=== PATIENT | female | born 1940 | race Caucasian/White ===

== ENCOUNTER 2024-09-04 17:31 | Inpatient (IN) ==
[2024-09-04 17:49] VITALS: BMI 34.7
--- NOTE | 2024-09-04 17:50 | DR.URINEF ---
HPI Time Seen Time Seen by Provider: 09/04/24 17:49 PCP Primary Care Physician: kayce hugo HPI Comment HPI Comment: 83-year-old female non-smoker with history of hypertension, A-fib on Eliquis, was brought in from her home by EMS due to frequent urination and discomfort. She has been treated for UTI recently with 2 rounds of antibiotics, last one was ciprofloxacin 5 days ago. She denied any fever or chills but still has bladder discomfort, feels she still has a UTI Complaint Chief Complaint:: Patient states last wednesday she started having stinging and a foul smell when she urinates and she states she has " I felt loopy more than normal". Patient was recently on cipro 10 day supply on 08/21/24. COVID-19 Coronavirus risk:travel/contact w/high risk person: No Has patient experienced Coronavirus symptoms: No Source History Provided: Patient Mode of Arrival Mode of Arrival: EMS Timing Onset of Chief Complaint: 08/30/24 PMH PMH Past Medical History: Yes Past Medical History: GERD and Hypertension Past Medical History Comment: pacemaker Past Surgical History: Yes Surgical History: Hysterectomy and Ortho Surgery Past Surgical History Comment: right shoulder, pacemaker Family History History of Family Medical Conditions: Yes Family Medical History: Hypertension Social History Does patient currently use any type of tobacco product: No Have you used tobacco products in the last 12 months: No Does any household member use tobacco: No Alcohol Use: None Do you use any recreational Drugs:: No Lives With: Family Lives Where: Home Travel Risk Coronavirus risk:travel/contact w/high risk person: No Has patient experienced Coronavirus symptoms: No Infectious screening In the last 2 months have you had wt loss of >10#?: NO Have you had fever, night sweats or hemotysis?: No Have you traveled outside the country in the last 6 months?: No Isolation: Standard ROS Review of Systems Constitutional: Malaise, Fatigue and Loss of Appetite; negative Diaphoresis, Fever or Weakness Eyes: No Symptoms Reported ENTM: No Symptoms Reported Respiratoy: No Symptoms Reported Cardiovascular: No Symptoms Reported and Palpitations; negative Chest Pain, Edema or Syncope Gastrointestinal/Abdominal: No Symptoms Reported, Abdominal Pain and Nausea; negative Constipation, Diarrhea or Vomiting Genitourinary: Dysuria and Frequency; negative Hematuria Neurological: Anxiety and Depressed Musculoskeletal: Back Pain and Joint Pain Integumentary: No Symptoms Reported; negative Change in Hair/Nails, Dryness or Rash Endocrine: Increased Urine and Decreased Appetite Psychiatric: Anxiety and Depression All Other Systems: Reviewed and Negative PE Vital Signs Vitals: Vital Signs Temperature 97.5 F Pulse Rate 102 Pulse Rate 69 Pulse Rate 60 Pulse Rate 194 Pulse Rate 189 Pulse Rate 197 Pulse Rate 195 Pulse Rate 144 Pulse Rate 116 Pulse Rate 60 Pulse Rate 60 Pulse Rate 60 Respiratory Rate 21 Respiratory Rate 23 Respiratory Rate 23 Respiratory Rate 34 Respiratory Rate 30 Respiratory Rate 36 Respiratory Rate 39 Respiratory Rate 39 Respiratory Rate 21 Respiratory Rate 15 Respiratory Rate 15 Blood Pressure 125/57 Blood Pressure 125/57 Blood Pressure 125/57 Blood Pressure 127/53 Blood Pressure 127/53 Blood Pressure 120/81 Blood Pressure 133/78 Blood Pressure 133/78 Blood Pressure 134/61 Blood Pressure 115/53 O2 Sat by Pulse Oximetry 98 O2 Sat by Pulse Oximetry 98 O2 Sat by Pulse Oximetry 96 O2 Sat by Pulse Oximetry 100 O2 Sat by Pulse Oximetry 95 O2 Sat by Pulse Oximetry 98 O2 Sat by Pulse Oximetry 99 O2 Sat by Pulse Oximetry 98 O2 Sat by Pulse Oximetry 98 O2 Sat by Pulse Oximetry 97 O2 Sat by Pulse Oximetry 98 O2 Sat by Pulse Oximetry 100 General Limitations: No Limitations General Appearance: Alert, In No Apparent Distress and Anxious; negative Lethargic Head Head Exam: Normal Inspection; negative Atraumatic or Normocephalic Eyes Eye exam: Normal Appearance, PERRL and EOMI; negative Conjunctival Injection or Nystagmus ENT ENT Exam: Normal Exam, Normal Oropharynx and Mucous Membranes Moist Neck Neck Exam: Normal Inspection and Full ROM; negative Trachea Midline or Tenderness Chest Chest Inspection: Normal Inspection and Symmetric Chest Wall Rise; negative Tenderness or Rash Respiratory Respiratory Exam: Normal Lung Sounds Bilat; negative Accessory Muscle Use or Chest Wall Tenderness Cardiovascular Cardiovascular Exam: Regular Rate and Normal Rhythm Abdominal Exam Abdominal Exam: Normal Inspection, Normal Bowel Sounds, Soft and Tenderness; negative Distention, Guarding, Rebound or Rigidity Extremities Extremities Exam: Normal Inspection, Full ROM and Normal Capillary Refill; negative Tenderness, Edema or Joint Swelling Back Back Exam: Normal Inspection and Full ROM; negative Tenderness, (R) CVA Tenderness, (L) CVA Tenderness, Muscle Spasm or Vertebral Tenderness Psychiatric Psychiatric Exam: Normal Affect, Normal Mood and Depressed Skin Skin Exam: Warm, Dry and Intact; negative Rash MDM Additional Information Obtained Additional Information Obtained From: Old Records Differential Diagnosis Differential Diagnosis: Constipation, Pyelonephritis, Urinary retention, Urolithiasis and UTI COURSE Treatment Treatment: Patient is given IV fluids, with potassium chloride supplementation since her serum potassium is 2.3. Regarding her hypercalcemia with a level of 15, she was given IV hydration using saline, calcitonin 4 units/kg at 360 units subcu. PTH and 125 dihydroxy vitamin D levels were also ordered. Patient will be admitted for the hospitalist, discussed with Dr. Baez Reevaluation 1st: Unchanged Consultation Called: 19:55 Call Returned: 20:00 Consultation Comments: Dr. Baez: Will admit for the floor Education/Counseling Education/Counseling: Patient and Counseling Educated On: Treatment, Diagnosis and Prognosis ROR Labs Reviewed Laboratory Results Reviewed?: Yes 09/04/24 18:06 09/04/24 18:06 Laboratory: WBC 6.7 X10^3/uL (3.6-10.0) 09/04/24 18:06 RBC 3.53 X10^6/uL (3.5-5.4) 09/04/24 18:06 Hgb 11.1 g/dL (12.0-16.0) L 09/04/24 18:06 Hct 32.5 % (36.0-47.0) L 09/04/24 18:06 MCV 92.0 fL (80.0-100.0) 09/04/24 18:06 MCH 31.4 pg (27.0-34.0) 09/04/24 18:06 MCHC 34.1 g/dL (33.0-35.0) 09/04/24 18:06 RDW 14.7 % (11.6-16.5) 09/04/24 18:06 Plt Count 239 X10^3/uL (150.0-450.0) 09/04/24 18:06 MPV 8.3 fL (7.4-11.0) 09/04/24 18:06 Neut % (Auto) 59.2 % (42.0-75.0) 09/04/24 18:06 Lymph % (Auto) 25.9 % (21.0-51.0) 09/04/24 18:06 [place] % (Auto) 6.1 % (0.0-13.0) 09/04/24 18:06 Eos % (Auto) 6.0 % (0.9-2.9) H 09/04/24 18:06 Baso % (Auto) 2.8 % (0.2-1.0) H 09/04/24 18:06 Neut # (Auto) 4.0 x10^3/uL (2.2-4.8) 09/04/24 18:06 Lymph # (Auto) 1.7 X10^3/uL (1.3-2.9) 09/04/24 18:06 [place] # (Auto) 0.4 x10^3/uL (0.3-0.8) 09/04/24 18:06 Eos # (Auto) 0.4 x10^3/uL (0.0-0.2) H 09/04/24 18:06 Baso # (Auto) 0.2 X10^3/uL (0.0-0.1) H 09/04/24 18:06 Absolute Nucleated RBC 0.2 /100WBC 09/04/24 18:06 Sodium 138 mmol/L (136-145) 09/04/24 18:06 Corrected Sodium 138 mmol/L (136-145) 09/04/24 18:06 Potassium 2.3 mmol/L (3.5-5.1) L* 09/04/24 18:06 Chloride 96 mmol/L (98-107) L 09/04/24 18:06 Carbon Dioxide 33.6 mmol/L (21-32) H 09/04/24 18:06 BUN 18 mg/dL (7-18) 09/04/24 18:06 Creatinine 1.22 mg/dL (0.55-1.02) H 09/04/24 18:06 Est GFR (MDRD) Af Amer 54 (>60) L 09/04/24 18:06 Est GFR (MDRD) Non-Af 45 (>60) L 09/04/24 18:06 Glucose 111 mg/dL (65-99) H 09/04/24 18:06 Calcium 15.6 mg/dL (8.5-10.1) H* 09/04/24 18:06 Corrected Calcium TNP 09/04/24 18:06 Total Bilirubin 0.70 mg/dL (0.2-1.0) 09/04/24 18:06 AST 29 Units/L (15-37) 09/04/24 18:06 ALT 25 Units/L (12-78) 09/04/24 18:06 Alkaline Phosphatase 113 Units/L (46-116) 09/04/24 18:06 Creatine Kinase 30 Units/L (26-192) 09/04/24 18:06 Troponin I High Sens 42.6 ng/L (4.0-60.0) 09/04/24 18:06 Total Protein 9.2 g/dL (6.4-8.2) H 09/04/24 18:06 Albumin 3.5 g/dL (3.4-5.0) 09/04/24 18:06 Globulin 5.7 g/dL (2.5-4.5) H 09/04/24 18:06 Albumin/Globulin Ratio 0.6 Ratio (1.1-2.1) L 09/04/24 18:06 Specimen Type Clean catch urine 09/04/24 17:50 Urine Color Pale yellow (YELLOW) 09/04/24 17:50 Urine Appearance Clear (CLEAR) 09/04/24 17:50 Urine pH 6.0 (5.0 - 8.0) 09/04/24 17:50 Ur Specific [place] 1.020 (1.000-1.030) 09/04/24 17:50 Urine Protein 1+ (NEGATIVE) 09/04/24 17:50 Urine Glucose (UA) Negative (NEGATIVE) 09/04/24 17:50 Urine Ketones Negative (NEGATIVE) 09/04/24 17:50 Urine Blood 4+ (NEGATIVE) 09/04/24 17:50 Urine Nitrite Negative (NEGATIVE) 09/04/24 17:50 Urine Bilirubin Negative (NEGATIVE) 09/04/24 17:50 Urine Urobilinogen Normal (NORMAL) 09/04/24 17:50 Ur Leukocyte Esterase 1+ (NEGATIVE) 09/04/24 17:50 Urine RBC 5-10 /HPF (0-3) A 09/04/24 17:50 Urine WBC 0-2 /HPF (0-5) 09/04/24 17:50 Ur Squamous Epith Cells Moderate /HPF (NEGATIVE) 09/04/24 17:50 Urine Bacteria Trace /HPF (NEGATIVE) 09/04/24 17:50 Ur Culture Indicated? No/not indicated 09/04/24 17:50 XRAY X-ray Results: CT of A/P: No signs of bowel obstruction or ureteral obstruction; heavy fecal burden in colon Opioid Opioid Risk Tool Age (Lasha box if 16-45): No History of Preadolescent Sexual Abuse: No Total: 0 Total Score Risk Category: Low Risk Copyright: [facility] predicting aberrant behaviors Discharge Plan Diagnosis Discharge Problem: Hypercalcemia, Acute hypokalemia Constipation Qualifiers: Constipation type: slow transit constipation Qualified Code(s): K59.01 - Slow transit constipation Hospital Course Hospital Course: She was seen normal saline, potassium supplementation both IV and orally. Calcitonin was also given subcu for elevated serum calcium patient will be admitted for the hospitalist, Dr. Baez Discharge Plan Patient Disposition: HOME, SELF-CARE Assessment: HyperCalcemia: IV hydration, calcitonin, further workup including PTH and vitamin D levels Hypokalemia: IV and oral supplementation Condition: Stable Prescription drug monitoring program results: PDMP reviewed and no concerns identified Prescriptions: No Action Eliquis 5 mg tablet 5 mg PO BID 90 Days Qty: 180 1RF pantoprazole 40 mg tablet,delayed release (DR/EC) 40 mg PO QDAY 90 Days Qty: 90 1RF donepezil 5 mg tablet 5 mg PO QDAY 30 Days Qty: 30 3RF hydrochlorothiazide 12.5 mg tablet 12.5 mg PO QDAY 90 Days Qty: 90 1RF amlodipine 10 mg tablet 10 mg PO QDAY 90 Days Qty: 90 1RF metoprolol tartrate 25 mg tablet 25 mg PO BID cetirizine 10 mg tablet 10 mg PO QDAY 30 Days Qty: 30 5RF Health Concerns: Post Hospitalization: new medications and changes needed to prevent readmission or further decline. Pt educated and given instructions on all concerns. Plan of Treatment: Continue with present treatment and follow up plan. Pt is to keep follow up appointment as instructed and take medications as ordered. Orders to Discharge Patient Discharge Orders: Discharge (Routine); Ordered 09/04/24 Ordered By: Madhav Barbosa Transfer (Routine); Ordered 09/04/24 Ordered By: Madhav Barbosa Follow ups/Referrals Follow ups/Referrals: NFD,None [Primary Care Provider] - 3 days Instructions Stand Alone Forms: Find Help Web Site, Post Hospital Follow Up Care Print Language: JORDANIAN
[2024-09-04 18:21] LABS: MEAN PLATELET VOLUME 8.3 fL (7.4-11.0); RED CELL DISTRIBUTION WIDTH 14.7 % (11.6-16.5)
[2024-09-04 18:23] LABS: BLOOD/HEMOGLOBIN,URINE 4+ (NEGATIVE); LEUKOCYTE ESTERASE ,URINE 1+ (NEGATIVE); NITRITES,URINE NEGATIVE (NEGATIVE)
[2024-09-04 18:30] LABS: COR NA(FOR HYPERGLY) 138 mmol/L (136-145); CREATININE 1.22 mg/dL (0.55-1.02); eGFR NON BLACK RACES 45 (>60)
[2024-09-04 18:38] LABS: APPEARANCE,URINE CLEAR (CLEAR); SQUAMOUS EPITHELIAL CELL,UR MODERATE /HPF (NEGATIVE)
[2024-09-04] MEDS: POTASSIUM CHLORIDE LIQ PO ONE (18:49)
[2024-09-04] MEDS: NS + KCL 40 MEQ/L 1,000 ML IV ONE (18:49)
--- NOTE | 2024-09-04 19:00 | CT ---
CT ABDOMEN AND PELVIS WITHOUT CONTRAST HISTORY: Foul-smelling urine COMPARISON: None TECHNIQUE: Axial images were obtained of the abdomen and pelvis without IV contrast. Sagittal and coronal reformatted images were provided. All images were reviewed in a variety of windows and levels. RADIATION REDUCTION TECHNIQUE: Automated exposure control, adjustment of the mA or kV according to patient size, or iterative reconstruction techniques were used. FINDINGS: Please note that lack of IV contrast does limit evaluation of the soft tissues and vascular detail. The visualized lower lung zones are clear. The heart size is within normal limits. There is no evidence of a pericardial effusion. Implantable cardiac device is noted. The liver, spleen, pancreas, adrenal glands, and kidneys are grossly unremarkable. Gallstones are suggested. Status post hysterectomy. Moderate to severe constipation is seen with heavy fecal burden from the cecum to the rectosigmoid region. The appendix is not visualized on this examination. There is no evidence of stones or signs of obstructive uropathy. The stomach, small bowel, and colon are grossly unremarkable. A few scattered diverticula are seen without evidence of diverticulitis. There are no inflammatory changes in the right lower quadrant to suggest secondary signs of acute appendicitis. There is no evidence of retroperitoneal or mesenteric lymphadenopathy. The visualized bones demonstrate degenerative changes. There are no concerning lytic or blastic lesions identified. Right hip arthroplasty is noted. IMPRESSION: 1. Implantable cardiac device is noted. 2. Gallstones are suggested. 3. Status post hysterectomy. 4. Moderate to severe constipation is seen with heavy fecal burden from the cecum to the rectosigmoid region. 5. Right hip arthroplasty is noted. THIS IS AN ELECTRONICALLY VERIFIED FINAL REPORT 09/04/2024 6:58 PM - Electronically signed by Vamsi Lugo MD
--- NOTE | 2024-09-04 19:37 | EKG ---
Test Reason : Afib, HyperCalcemia, hypokalemia Blood Pressure : */* mmHG Vent. Rate : 61 BPM Atrial Rate : 61 BPM P-R Int : 254 ms QRS Dur : 100 ms QT Int : 372 ms P-R-T Axes : * -13 10 degrees QTc Int : 374 ms Atrial-paced rhythm with prolonged AV conduction Incomplete right bundle branch block Minimal voltage criteria for LVH, may be normal variant ( R in aVL ) Septal infarct , age undetermined Nonspecific T wave abnormality Baseline wander Abnormal ECG No previous ECGs available Confirmed by Elliott Conteh MD ([id number]) on 09/05/2024 7:12:27 AM Referred By: Confirmed By: Elliott Conteh MD
[2024-09-04 20:53] LABS: COR NA(FOR HYPERGLY) 139 mmol/L (136-145); CREATININE 1.05 mg/dL (0.55-1.02); eGFR NON BLACK RACES 53 (>60)
[2024-09-04 20:57] LABS: COR CA(FOR HYPOALB) 15.5 mg/dL (8.5-10.1)
[2024-09-04] MEDS: MIACALCIN INJ SC ONE (21:05)
[2024-09-04] MEDS: MAG-OX TAB PO ONE (21:06)
[2024-09-04] MEDS: NORVASC TAB 10 MG PO SCH (23:18)
[2024-09-04] MEDS: ELIQUIS PO SCH (23:18)
[2024-09-04] MEDS: PROTONIX TAB 40 MG PO SCH (23:18)
[2024-09-04] MEDS: LOPRESSOR TAB 25 MG PO SCH (23:18)
[2024-09-04] MEDS: ARICEPT TAB 5 MG PO SCH (23:18)
[2024-09-05] MEDS: ZOFRAN INJ 4 MG VIAL IVP PRN (01:56)
[2024-09-05 05:52] LABS: MEAN PLATELET VOLUME 8.6 fL (7.4-11.0); RED CELL DISTRIBUTION WIDTH 15.1 % (11.6-16.5)
[2024-09-05 06:04] LABS: COR CA(FOR HYPOALB) 13.8 mg/dL (8.5-10.1); COR NA(FOR HYPERGLY) 143 mmol/L (136-145); CREATININE 1.07 mg/dL (0.55-1.02); eGFR NON BLACK RACES 52 (>60)
[2024-09-05] MEDS ORDERED: CONSULT PHARMACY - POTASSIUM & MAGNESIUM XX SCH (07:00)
--- NOTE | 2024-09-05 08:02 | RAD ---
EXAMINATION: CHEST, 1 VIEW HISTORY: having stinging and a foul smell when she urinates and she states she has " I felt loopy more than normal". Patient was recently on cipro 10 day supply on 08/21/24.; . COMPARISON STUDY: None. TECHNIQUE: A single view of the chest was obtained. FINDINGS: Left-sided dual lead pacemaker in place. Poor inspiration. Heart size is mildly enlarged. No acute infiltrates. There is no pneumothorax. Hilar and mediastinal structures and bony structures are unremarkable. Central vascular congestion. EKG leads overlie the chest.. IMPRESSION: Central vascular congestion. No acute infiltrates THIS IS AN ELECTRONICALLY VERIFIED FINAL REPORT 09/05/2024 7:59 AM - Electronically signed by López Kirkland MD
[2024-09-05] MEDS: MAG-OX TAB PO SCH (08:35)
[2024-09-05] MEDS: HYDROCHLOROTHIAZIDE 12.5 MG CAP PO SCH (08:35)
[2024-09-05] MEDS: K-DUR TAB 20 MEQ PO SCH (08:36)
[2024-09-05] MEDS ORDERED: COLACE CAP 100 MG PO PRN (09:48)
--- NOTE | 2024-09-05 09:54 | DR.H&P ---
H&P History & Physical for Day of: H&P Date: 09/05/24 Chief Complaint Chief Complaint: urinary symptoms History of Present Illness History of Present Illness: Ms Guerra is a 83-year-old female with a past medical history of atrial fibrillation, type 2 diabetes, hypertension, COPD and GERD presented with worsening urinary symptoms. She was being treated for UTI outpatient with ciprofloxacin. ER workup included labs which showed elevated calcium 15.6, potassium 2.3 Immuzim 1.6. UA was not suggestive of infection. Chest x-ray showed vascular congestion. CT abdomen pelvis showed gallstones and constipation. She was given calcitonin and electrolyte correction. She was admitted for further management. She is feeling better this morning. She states her last bowel movement was yesterday. She reports poor oral intake for the past few days. She also had some nausea and vomiting. Labs/imaging reviewed: - WBC 6.1 hemoglobin 10.1 potassium 2.9 magnesium 1.5 creatinine 1.07 - Corrected calcium 13.8 - CTAP and chest x-ray reviewed Plan: Admit to [facility], replace potassium and magnesium. Start gentle hydration with normal saline and electrolytes. Give another dose of calcitonin. Follow-up pending labs. Hold HCTZ due to hypercalcemia. Monitor calcium level. Zofran as needed. Resume home medications. Add Colace as needed. Physical therapy as tolerated. Monitor a.m. labs and imaging. Time spent for clinical assessment, reviewing labs and imaging, physical exam, decision making and documentation greater than 45 minutes. Past Medical History Past Medical History: GERD and Hypertension Past Surgical History Surgical History: Hysterectomy and Ortho Surgery Family History Family Medical History: Diabetes Mellitus, Cancer and Hypertension Social History Does patient currently use any type of tobacco product: No Have you used tobacco products in the last 12 months: No Type of Tobacco Use: None Does any household member use tobacco: No Alcohol Use: None Drug Use: None Medications Home Medications: Home Medications Medication Instructions Recorded Confirmed Type metoprolol tartrate 25 mg tablet 25 mg PO BID 04/16/23 09/04/24 History Allergies Allergies Allergy/AdvReac Type Severity Reaction Status Date / Time Penicillins Allergy Verified 08/09/24 14:19 Labs 09/05/24 05:15 09/05/24 05:15 Labs: Laboratory WBC 6.1 X10^3/uL (3.6-10.0) 09/05/24 05:15 RBC 3.17 X10^6/uL (3.5-5.4) L 09/05/24 05:15 Hgb 10.1 g/dL (12.0-16.0) L 09/05/24 05:15 Hct 28.9 % (36.0-47.0) L 09/05/24 05:15 MCV 91.4 fL (80.0-100.0) 09/05/24 05:15 MCH 31.8 pg (27.0-34.0) 09/05/24 05:15 MCHC 34.8 g/dL (33.0-35.0) 09/05/24 05:15 RDW 15.1 % (11.6-16.5) 09/05/24 05:15 Plt Count 209 X10^3/uL (150.0-450.0) 09/05/24 05:15 MPV 8.6 fL (7.4-11.0) 09/05/24 05:15 Neut % (Auto) 71.6 % (42.0-75.0) 09/05/24 05:15 Lymph % (Auto) 19.0 % (21.0-51.0) L 09/05/24 05:15 [place] % (Auto) 7.0 % (0.0-13.0) 09/05/24 05:15 Eos % (Auto) 2.0 % (0.9-2.9) 09/05/24 05:15 Baso % (Auto) 0.4 % (0.2-1.0) 09/05/24 05:15 Neut # (Auto) 4.4 x10^3/uL (2.2-4.8) 09/05/24 05:15 Lymph # (Auto) 1.2 X10^3/uL (1.3-2.9) L 09/05/24 05:15 [place] # (Auto) 0.4 x10^3/uL (0.3-0.8) 09/05/24 05:15 Eos # (Auto) 0.1 x10^3/uL (0.0-0.2) 09/05/24 05:15 Baso # (Auto) 0.0 X10^3/uL (0.0-0.1) 09/05/24 05:15 Absolute Nucleated RBC 0.0 /100WBC 09/05/24 05:15 Sodium 142 mmol/L (136-145) 09/05/24 05:15 Corrected Sodium 143 mmol/L (136-145) 09/05/24 05:15 Potassium 2.9 mmol/L (3.5-5.1) L* 09/05/24 05:15 Chloride 102 mmol/L (98-107) 09/05/24 05:15 Carbon Dioxide 32.8 mmol/L (21-32) H 09/05/24 05:15 BUN 15 mg/dL (7-18) 09/05/24 05:15 Creatinine 1.07 mg/dL (0.55-1.02) H 09/05/24 05:15 Est GFR (MDRD) Af Amer > 60 (>60) 09/05/24 05:15 Est GFR (MDRD) Non-Af 52 (>60) L 09/05/24 05:15 Glucose 142 mg/dL (65-99) H 09/05/24 05:15 Calcium 13.1 mg/dL (8.5-10.1) H* 09/05/24 05:15 Corrected Calcium 13.8 mg/dL (8.5-10.1) H 09/05/24 05:15 Magnesium 1.5 mg/dL (2.0-2.9) L 09/05/24 05:15 Total Bilirubin 0.60 mg/dL (0.2-1.0) 09/05/24 05:15 AST 26 Units/L (15-37) 09/05/24 05:15 ALT 24 Units/L (12-78) 09/05/24 05:15 Alkaline Phosphatase 101 Units/L (46-116) 09/05/24 05:15 Creatine Kinase 30 Units/L (26-192) 09/04/24 18:06 Troponin I High Sens 42.6 ng/L (4.0-60.0) 09/04/24 18:06 Total Protein 8.1 g/dL (6.4-8.2) 09/05/24 05:15 Albumin 3.1 g/dL (3.4-5.0) L 09/05/24 05:15 Globulin 5.0 g/dL (2.5-4.5) H 09/05/24 05:15 Albumin/Globulin Ratio 0.6 Ratio (1.1-2.1) L 09/05/24 05:15 Specimen Type Clean catch urine 09/04/24 17:50 Urine Color Pale yellow (YELLOW) 09/04/24 17:50 Urine Appearance Clear (CLEAR) 09/04/24 17:50 Urine pH 6.0 (5.0 - 8.0) 09/04/24 17:50 Ur Specific [place] 1.020 (1.000-1.030) 09/04/24 17:50 Urine Protein 1+ (NEGATIVE) 09/04/24 17:50 Urine Glucose (UA) Negative (NEGATIVE) 09/04/24 17:50 Urine Ketones Negative (NEGATIVE) 09/04/24 17:50 Urine Blood 4+ (NEGATIVE) 09/04/24 17:50 Urine Nitrite Negative (NEGATIVE) 09/04/24 17:50 Urine Bilirubin Negative (NEGATIVE) 09/04/24 17:50 Urine Urobilinogen Normal (NORMAL) 09/04/24 17:50 Ur Leukocyte Esterase 1+ (NEGATIVE) 09/04/24 17:50 Urine RBC 5-10 /HPF (0-3) A 09/04/24 17:50 Urine WBC 0-2 /HPF (0-5) 09/04/24 17:50 Ur Squamous Epith Cells Moderate /HPF (NEGATIVE) 09/04/24 17:50 Urine Bacteria Trace /HPF (NEGATIVE) 09/04/24 17:50 Ur Culture Indicated? No/not indicated 09/04/24 17:50 Review of Systems Constitutional: Weakness Eyes: No Symptoms Reported ENT: No Symptoms Reported Respiratory: No Symptoms Reported Cardiovascular: No Symptoms Reported Gastrointestinal: Nausea, Vomiting and Constipation Genitourinary: Dysuria and Frequency Musculoskeletal: No Symptoms Reported Skin: No Symptoms Reported Neurological: No Symptoms Reported Physical Exam Vital Signs: Vital Signs Temperature 97.7 F Temperature 98.5 F Pulse Rate [Apical] 60 Pulse Rate [Apical] 61 Respiratory Rate 20 Respiratory Rate 18 Blood Pressure [Left Arm] 133/61 Blood Pressure [Left Arm] 120/58 O2 Sat by Pulse Oximetry 95 O2 Sat by Pulse Oximetry 93 Oriented: Normal Respiratory: Diminished Throughout Cardiovascular: Normal Auscultation: Bowel Sounds: Normal Palpation: Normal Tenderness: Normal Skin: Normal Musculoskeletal: Normal Psychiatric: Normal Mood Description: Calm Affect: Normal Speech Pattern: Clear and Appropriate Assessment/Plan (1) Hypercalcemia: Status: Acute (2) Acute hypokalemia: Status: Acute (3) Constipation: Qualifiers: Constipation type: slow transit constipation Qualified Code(s): K59.01 - Slow transit constipation Status: Acute (4) Hypomagnesemia: Status: Acute (5) COPD (chronic obstructive pulmonary disease): Qualifiers: COPD type: unspecified COPD Qualified Code(s): J44.9 - Chronic obstructive pulmonary disease, unspecified Status: Chronic (6) Type 2 diabetes, diet controlled: Status: Chronic (7) Afib: Qualifiers: Atrial fibrillation type: unspecified chronic Qualified Code(s): I48.20 - Chronic atrial fibrillation, unspecified Status: Chronic Review H&P Reviewed: Yes Patient was examined?: Yes
[2024-09-05] MEDS: NS + KCL 20 MEQ/L 1,000 ML with MAGNESIUM SULFATE 50% INJ VIAL 1 G IV SCH (10:50)
[2024-09-05] MEDS: DULCOLAX SUPPOSITORY 10 MG RECTAL ONE (10:50)
[2024-09-05] MEDS: MIACALCIN INJ SC NR (10:51)
[2024-09-06 05:57] LABS: MEAN PLATELET VOLUME 8.9 fL (7.4-11.0); RED CELL DISTRIBUTION WIDTH 14.8 % (11.6-16.5)
[2024-09-06 06:13] LABS: COR CA(FOR HYPOALB) 13.5 mg/dL (8.5-10.1); COR NA(FOR HYPERGLY) 143 mmol/L (136-145); CREATININE 0.95 mg/dL (0.55-1.02); eGFR NON BLACK RACES > 60 (>60)
--- NOTE | 2024-09-06 06:45 | US ---
EXAMINATION: GALL BLADDER HISTORY: gallstones on CT, N/V; . COMPARISON STUDY: None. TECHNIQUE: Real-time grayscale, color flow, duplex Doppler spectral analysis ultrasound of the right upper abdominal quadrant FINDINGS: The gallbladder is mildly distended and contains multiple gallstones. Gallbladder monge measure 2 mm diameter. Common bile duct measures 3 mm diameter. No intrahepatic bile duct dilatation. The liver measures 18 cm longitudinal oblique dimension and is heterogeneous hyperechoic. Consider fatty infiltration. Liver details are limited. Normal venous waveforms within the main portal vein. Normal arterial waveforms main hepatic artery. Tail of pancreas obscured by patient body habitus. No obvious pancreatic duct dilatation. IMPRESSION: Cholelithiasis. Hepatomegaly. The liver is diffuse heterogeneous hyperechoic. THIS IS AN ELECTRONICALLY VERIFIED FINAL REPORT 09/06/2024 6:42 AM - Electronically signed by Melodie Hoffman MD
[2024-09-06] MEDS ORDERED: CONSULT PHARMACY - POTASSIUM & MAGNESIUM XX SCH (07:00)
[2024-09-06] MEDS ORDERED: K-DUR TAB 20 MEQ PO SCH (09:00)
[2024-09-06] MEDS ORDERED: MAG-OX TAB PO SCH (09:00)
[2024-09-06] MEDS ORDERED: PHARMACY CONSULT XX SCH (15:00)
[2024-09-06] MEDS: NS 500 ML IV 500 ML with AREDIA 90 MG IV ONE (15:32)
[2024-09-06] MEDS: MIRALAX POWDER (1 DOSE 17 G) PO SCH (15:35)
--- NOTE | 2024-09-06 17:18 | NOTE.SOAP ---
Soap Note Note for Day of Date of Exam: 09/06/24 Subjective Data Subjective Data: Still with elevated calcium. Still with constipation. Labs otherwise stable with improving hypokalemia. Vital stable. Seen with nurse at bedside. Objective Data Objective Data: Elderly female in no acute distress. Mild confusion but pleasant and answers most questions appropriately. Heart regular rate and rhythm with clear lungs. Bowel sounds present and nontender. Slightly distended. Assessment Assessment: Hypercalcemia Hypokalemia Chronic constipation Recent right hip fracture status post ORIF Plan Plan: Start bisphosphonate. Continue IV fluids. Monitor labs closely. Potassium as needed. Bowel cleanse. Remove alexandra.
[2024-09-06] MEDS: ARICEPT TAB 5 MG PO SCH (22:05)
[2024-09-07 05:55] LABS: MEAN PLATELET VOLUME 8.7 fL (7.4-11.0); RED CELL DISTRIBUTION WIDTH 14.7 % (11.6-16.5)
[2024-09-07 06:09] LABS: COR CA(FOR HYPOALB) 13.6 mg/dL (8.5-10.1); CREATININE 0.82 mg/dL (0.55-1.02); eGFR NON BLACK RACES > 60 (>60)
--- NOTE | 2024-09-07 07:47 | CT ---
EXAMINATION: CHEST W/O CON HISTORY: poss tumor in chest ; . COMPARISON: Chest x-ray 09/05/2024 TECHNIQUE: Routine axial imaging of the chest was performed. Lack of IV contrast limits sensitivity.. The above CT scan was done with automated exposure control and the mA and kV was adjusted to obtain quality images according to patient size. FINDINGS: Lungs: Respiratory motion. Scattered patchy areas of atelectasis. Minimal central bronchiectasis. No acute infiltrates, suspicious pulmonary nodules, interstitial changes or ground-glass opacities Central Airways: No obstructing endobronchial lesions Pleura: No pleural effusion or pneumothorax Thoracic Aorta: Ectasia. Atherosclerotic calcification Main Pulmonary Trunk: Normal diameter Lymph Nodes: No pathologic hilar, axillary or mediastinal adenopathy Heart/Pericardium: Mild cardiomegaly. No significant pericardial effusion. Pacemaker. Coronary artery calcification Liver: No acute findings. GB/Biliary: Not visualized Spleen: Normal size and density Pancreas: No acute findings as visualized Adrenal Glands: No mass Kidneys limited visualization. Abdominal Aorta: Tapers normally Retroperitoneum: No pathologically enlarged lymph nodes Bowel/Peritoneal Cavity: No acute findings as visualized Osseous Structures: Degenerative changes in the spine. Other: None IMPRESSION: No acute findings in the chest. No suspicious pulmonary nodule Scattered patchy areas of atelectasis with central bronchiectasis The above CT scan was done with automated exposure control and the mA and kV was adjusted to obtain quality images according to patient size THIS IS AN ELECTRONICALLY VERIFIED FINAL REPORT 09/07/2024 7:35 AM - Electronically signed by López Kirkland MD
[2024-09-07] MEDS ORDERED: CONSULT PHARMACY - POTASSIUM & MAGNESIUM XX SCH (08:00)
[2024-09-07] MEDS: NS 500 ML IV 500 ML with AREDIA 90 MG IV ONE (09:28)
[2024-09-07] MEDS: NS + KCL 40 MEQ/L 1,000 ML with MAGNESIUM SULFATE 50% INJ VIAL 1 G IV SCH (09:51)
--- NOTE | 2024-09-07 11:02 | NOTE.SOAP ---
Soap Note Note for Day of Date of Exam: 09/07/24 Subjective Data Subjective Data: Calcium down to 12.6 from 12.8. Potassium down to 3.0 from 3.5. No bowel movement yesterday or this morning. Vitals overall stable. Patient sitting at the edge of the bed eating breakfast. Objective Data Objective Data: Elderly female in no acute distress. Heart regular rate and rhythm. Lungs are clear. Belly is soft and nontender with bowel sounds present. Some mild distention. Hearing intact conversation. Assessment Assessment: Acute hypercalcemia Acute hypokalemia Chronic constipation subacute RT hip fracture s/p ORIF Plan Plan: Continue MiraLAX and Colace. As needed magnesium. Another dose of bisphosphonate today. Continue monitor labs. Highly likely that we will be trying to transfer her to another facility for nephrology evaluation tomorrow. Does need an outpatient endocrine workup. Chest CT not consistent with any metastatic disease. Given the CT of her chest yesterday and CT A/P earlier this week, highly doubt there is an occult malignancy.
[2024-09-08 06:12] LABS: MEAN PLATELET VOLUME 9.0 fL (7.4-11.0); RED CELL DISTRIBUTION WIDTH 14.9 % (11.6-16.5)
[2024-09-08 06:22] LABS: COR CA(FOR HYPOALB) 12.2 mg/dL (8.5-10.1); CREATININE 0.87 mg/dL (0.55-1.02); eGFR NON BLACK RACES > 60 (>60)
[2024-09-08 08:07] VITALS: BP 142/62; PULSE 60; RESP 20; TEMP 97.6; O2SAT 94
--- NOTE | 2024-09-08 10:03 | PCM.DCPLAN ---
DISCHARGE SUMMARY Admission Date Date of Admission: 09/04/24 Discharge Date Discharge Date: 09/08/24 Admission Diagnoses (1) Hypercalcemia: Status: Acute (2) Acute hypokalemia: Status: Acute (3) Constipation: Status: Acute (4) Hypomagnesemia: Status: Acute (5) COPD (chronic obstructive pulmonary disease): Status: Chronic (6) Type 2 diabetes, diet controlled: Status: Chronic (7) Afib: Status: Chronic Discharge Medications Discharge Medications: Prescriptions: Hospital Course Vital Signs: Vital Signs Temperature 98.5 F Temperature 99.0 F Pulse Rate [Apical] 62 Pulse Rate [Apical] 62 Respiratory Rate 19 Respiratory Rate 19 Blood Pressure [Left Arm] 137/61 Blood Pressure [Left Arm] 154/59 O2 Sat by Pulse Oximetry 95 O2 Sat by Pulse Oximetry 94 Latest Lab Results: Laboratory Last Values WBC 3.7 X10^3/uL (3.6-10.0) 09/08/24 05:17 RBC 2.73 X10^6/uL (3.5-5.4) L 09/08/24 05:17 Hgb 8.6 g/dL (12.0-16.0) L 09/08/24 05:17 Hct 25.0 % (36.0-47.0) L 09/08/24 05:17 MCV 91.8 fL (80.0-100.0) 09/08/24 05:17 MCH 31.7 pg (27.0-34.0) 09/08/24 05:17 MCHC 34.6 g/dL (33.0-35.0) 09/08/24 05:17 RDW 14.9 % (11.6-16.5) 09/08/24 05:17 Plt Count 157 X10^3/uL (150.0-450.0) 09/08/24 05:17 MPV 9.0 fL (7.4-11.0) 09/08/24 05:17 Neut % (Auto) 63.3 % (42.0-75.0) 09/08/24 05:17 Lymph % (Auto) 24.1 % (21.0-51.0) 09/08/24 05:17 Clay % (Auto) 7.6 % (0.0-13.0) 09/08/24 05:17 Eos % (Auto) 4.4 % (0.9-2.9) H 09/08/24 05:17 Baso % (Auto) 0.6 % (0.2-1.0) 09/08/24 05:17 Neut # (Auto) 2.3 x10^3/uL (2.2-4.8) 09/08/24 05:17 Lymph # (Auto) 0.9 X10^3/uL (1.3-2.9) L 09/08/24 05:17 Clay # (Auto) 0.3 x10^3/uL (0.3-0.8) 09/08/24 05:17 Eos # (Auto) 0.2 x10^3/uL (0.0-0.2) 09/08/24 05:17 Baso # (Auto) 0.0 X10^3/uL (0.0-0.1) 09/08/24 05:17 Absolute Nucleated RBC 0.2 /100WBC 09/08/24 05:17 Sodium 142 mmol/L (136-145) 09/08/24 05:17 Corrected Sodium TNP 09/08/24 05:17 Potassium 3.2 mmol/L (3.5-5.1) L 09/08/24 05:17 Chloride 108 mmol/L (98-107) H 09/08/24 05:17 Carbon Dioxide 25.9 mmol/L (21-32) 09/08/24 05:17 BUN 11 mg/dL (7-18) 09/08/24 05:17 Creatinine 0.87 mg/dL (0.55-1.02) 09/08/24 05:17 Est GFR (MDRD) Af Amer > 60 (>60) 09/08/24 05:17 Est GFR (MDRD) Non-Af > 60 (>60) 09/08/24 05:17 Glucose 95 mg/dL (65-99) 09/08/24 05:17 Calcium 11.2 mg/dL (8.5-10.1) H 09/08/24 05:17 Corrected Calcium 12.2 mg/dL (8.5-10.1) H 09/08/24 05:17 Magnesium 1.9 mg/dL (2.0-2.9) L 09/07/24 05:25 Total Bilirubin 0.50 mg/dL (0.2-1.0) 09/08/24 05:17 AST 25 Units/L (15-37) 09/08/24 05:17 ALT 19 Units/L (12-78) 09/08/24 05:17 Alkaline Phosphatase 98 Units/L (46-116) 09/08/24 05:17 Creatine Kinase 30 Units/L (26-192) 09/04/24 18:06 Troponin I High Sens 42.6 ng/L (4.0-60.0) 09/04/24 18:06 Total Protein 7.5 g/dL (6.4-8.2) 09/08/24 05:17 Albumin 2.8 g/dL (3.4-5.0) L 09/08/24 05:17 Globulin 4.7 g/dL (2.5-4.5) H 09/08/24 05:17 Albumin/Globulin Ratio 0.6 Ratio (1.1-2.1) L 09/08/24 05:17 Vit D 1,25-Dihydroxy Cancelled 09/04/24 18:06 PTH Intact <6 pg/mL (16-77) L 09/04/24 18:06 Specimen Type Clean catch urine 09/04/24 17:50 Urine Color Pale yellow (YELLOW) 09/04/24 17:50 Urine Appearance Clear (CLEAR) 09/04/24 17:50 Urine pH 6.0 (5.0 - 8.0) 09/04/24 17:50 Ur Specific [place] 1.020 (1.000-1.030) 09/04/24 17:50 Urine Protein 1+ (NEGATIVE) 09/04/24 17:50 Urine Glucose (UA) Negative (NEGATIVE) 09/04/24 17:50 Urine Ketones Negative (NEGATIVE) 09/04/24 17:50 Urine Blood 4+ (NEGATIVE) 09/04/24 17:50 Urine Nitrite Negative (NEGATIVE) 09/04/24 17:50 Urine Bilirubin Negative (NEGATIVE) 09/04/24 17:50 Urine Urobilinogen Normal (NORMAL) 09/04/24 17:50 Ur Leukocyte Esterase 1+ (NEGATIVE) 09/04/24 17:50 Urine RBC 5-10 /HPF (0-3) A 09/04/24 17:50 Urine WBC 0-2 /HPF (0-5) 09/04/24 17:50 Ur Squamous Epith Cells Moderate /HPF (NEGATIVE) 09/04/24 17:50 Urine Bacteria Trace /HPF (NEGATIVE) 09/04/24 17:50 Ur Culture Indicated? No/not indicated 09/04/24 17:50 Hospital Course: From H&P on 09/05/24: Ms Guerra is a 83-year-old female with a past medical history of atrial fibrillation, type 2 diabetes, hypertension, COPD and GERD presented with worsening urinary symptoms. She was being treated for UTI outpatient with ciprofloxacin. ER workup included labs which showed elevated calcium 15.6, potassium 2.3 Immuzim 1.6. UA was not suggestive of infection. Chest x-ray showed vascular congestion. CT abdomen pelvis showed gallstones and constipation. She was given calcitonin and electrolyte correction. She was admitted for further management. Patient did well in the hospital. She remained anemic with variable potassium and high calcium throughout. She did require 2 IV doses of bisphosphonate to get her calcium under 12. Heart rhythm remained stable throughout. Patient was able to ambulate with assistance and supervision. She has been discharged with home health services and plans to follow-up with PCP to repeat labs and possibly have referral to endocrine and/or nephrology. Alendronate daily was added. Suspect that ultimate source is immobilization/decreased mobility following right hip ORIF. Yady were removed during her stay.
== END 2024-09-08 14:15 | disposition home health service (06) | DRG 641 ==
LOC: MED/SURG 17:31 → ER 17:31 → OBSVTOIN 20:25 → MED/SURG 21:40
PROVIDERS: ADMIT Internal Medicine; ATTEND Family Medicine
DX: R11.2 Nausea with vomiting, unspecified; J44.9 Chronic obstructive pulmonary disease, unspecified; K59.01 Slow transit constipation; Z79.01 Long term (current) use of anticoagulants; R26.89 Other abnormalities of gait and mobility; Z95.0 Presence of cardiac pacemaker; K80.80 Other cholelithiasis without obstruction; R94.31 Abnormal electrocardiogram [ECG] [EKG]; E83.52 Hypercalcemia; R35.0 Frequency of micturition; E87.6 Hypokalemia; E11.65 Type 2 diabetes mellitus with hyperglycemia; E83.42 Hypomagnesemia; I48.20 Chronic atrial fibrillation, unspecified; I10 Essential (primary) hypertension; Z98.890 Other specified postprocedural states; R09.89 Other specified symptoms and signs involving the circulatory and respiratory systems; K21.9 Gastro-esophageal reflux disease without esophagitis